=== PATIENT | male | born 1955 | race Caucasian/White ===

== ENCOUNTER 2019-05-01 10:59 | Emergency (ER) | payer MEDICARE, OTHER ==
[~2019-05-01] VITALS: Ht 177.8 cm; Wt 65.6 kg
[2019-05-01 11:07] VITALS: BP 117/79
== END 2019-05-01 11:56 | disposition home or self-care (01) ==
LOC: ED 11:44
DX: L24.9 Irritant contact dermatitis, unspecified cause (principal)
CPT/HCPCS: 99283; J7512